=== PATIENT | male | born 1940 | race Asian ===

== ENCOUNTER 2017-10-24 01:30 | Emergency (ER) | payer OTHER ==
[~2017-10-24] VITALS: Ht 170.2 cm; Wt 87.5 kg
[2017-10-24 01:37] VITALS: Ht 170.2 cm; Wt 87.5 kg
[2017-10-24 02:22] LABS: BASOPHIL % 0.3 % (0-2); PLATELET COUNT 179 x10^3mcL (130-400); RED CELL DISTRIBUTION WIDTH 13.3 % (11.5-14.5)
[2017-10-24 02:27] LABS: CALCIUM 8.6 mg/dL (8.5-10.1); CHLORIDE SERUM 107 mmol/L (98-107); CREATININE SERUM 1.5 mg/dL (0.7-1.3); GLUCOSE SERUM 159 mg/dL (74-106); POTASSIUM SERUM 3.5 mmol/L (3.5-5.1); SODIUM SERUM 143 mmol/L (136-145)
[2017-10-24 02:33] LABS: ALBUMIN 3.5 g/dL (3.4-5.0); ALKALINE PHOSPHATASE 89 U/L (46-116); ALT/SGPT 27 U/L (16-63); AST/SGOT 16 U/L (15-37); BILIRUBIN TOTAL 0.55 mg/dL (0.20-1.00); TOTAL PROTEIN, SERUM 7.4 g/dL (6.4-8.2)
[2017-10-24 05:15] VITALS: BP 155/81
== END 2017-10-24 05:19 | disposition home or self-care (01) ==
LOC: ED 01:30
PROVIDERS: Emergency Medicine
DX: R42 Dizziness and giddiness (principal); I10 Essential (primary) hypertension; I48.91 Unspecified atrial fibrillation; Z86.79 Personal history of other diseases of the circulatory system
CPT/HCPCS: J2405; J7030; J8597